=== PATIENT | male | born 1955 | race Caucasian/White ===

== ENCOUNTER → 2019-05-16 | Outpatient (CLI) | payer OTHER ==
[~2019-05-16] MED LIST: ADULT LOW DOSE81 MG PO; B12 5,000 MCG1 EACH SL; CARVEDILOL12.5 MG PO; CARVEDILOL6.25 MG PO; CENTRUM SILVER1 EAC2 PO; ESTER-C 1,0001 EACH PO; FLONASE; FLONASE 0.05%50 MCG INH; FOLIC ACID0.8 MG PO; LIPITOR 20 MG T20 M1 PO; LIPITOR10 MG PO; LISINOPRIL-HCT1 EACH; NITROSTAT0.4 MG SUBLING; NORCO 5-325 TA1 EACH PO; PLAVIX 75 MG TA75 MG PO; TOPROL XL100 MG PO; VITAMIN B-125000 MCG SUBLING; VITAMIN B-6100 MG PO; VITAMIN B6 PO; VITAMIN D35000 UNI1 PO; ZESTRIL5 MG PO
[2019-05-16 11:57] LABS: CREATININE 0.8 mg/dL (0.7-1.3)
== END ==
LOC: CAT 10:36
PROVIDERS: Internal Medicine
DX: I71.2 Thoracic aortic aneurysm, without rupture (principal); K76.89 Other specified diseases of liver; I25.10 Atherosclerotic heart disease of native coronary artery without angina pectoris; M41.84 Other forms of scoliosis, thoracic region

== ENCOUNTER → 2021-08-24 | Outpatient (CLI) | payer OTHER ==
[2021-08-24 13:36] LABS: CREATININE 0.9 mg/dL (0.7-1.3)
== END | disposition home or self-care (01) ==
LOC: CAT 12:58
PROVIDERS: ATTEND Internal Medicine
DX: I71.2 Thoracic aortic aneurysm, without rupture (principal); I25.10 Atherosclerotic heart disease of native coronary artery without angina pectoris; K80.20 Calculus of gallbladder without cholecystitis without obstruction; K76.89 Other specified diseases of liver